=== PATIENT | male | born 1970 | race Caucasian/White ===

== ENCOUNTER → 2017-07-18 | Outpatient (CLI) | payer OTHER ==
[~2017-07-18] MED LIST: MELO7.5T31 PO; No Meds at this Time; ONDA4TAB7 PO; OXYC5CAP2 PO; TRAM50TA2 PO
[2017-07-18 09:46] LABS: BASOPHILS # (AUTO) 0.03 x10^3/uL (0-0.1); BASOPHILS % (AUTO) 0 % (0-1); EOSINOPHILS % (AUTO) 2 % (1-7); LYMPHOCYTES # (AUTO) 1.55 x10^3/uL (1-3.4); LYMPHOCYTES % (AUTO) 24 % (22-44); MD NO; MEAN CORPUSCULAR HEMOGLOBIN 33.5 pg (27.5-34.5); MEAN CORPUSCULAR HGB CONC 34.8 g/dL (33.2-36.2); MEAN CORPUSCULAR VOLUME 96.3 fL (81-97); MEAN PLATELET VOLUME 9.3 fL (7.4-10.4); MONOCYTES # (AUTO) 0.53 x10^3/uL (0.2-0.8); MONOCYTES % (AUTO) 8 % (2-9); NEUTROPHILS # (AUTO) 4.16 x10^3/uL (1.8-6.8); NEUTROPHILS % (AUTO) 65 % (42-75); PLATELET COUNT 194 x10^3/uL (130-400); RED BLOOD COUNT 4.79 x10^6/uL (4.38-5.82)
[2017-07-18 09:55] LABS: ALANINE AMINOTRANSFERASE 33 U/L (12-78); ALBUMIN 4.1 g/dL (3.4-5.0); ANION GAP 5 mmol/L (5-15); CALCIUM 8.7 mg/dL (8.5-10.1); CHLORIDE 107 mmol/L (98-107); CREATININE 1.17 mg/dL (0.7-1.3); INTERNATIONAL NORMALIZED RATIO 0.97 (0.93-1.1)
[2017-07-18 09:58] LABS: ALKALINE PHOSPHATASE 62 U/L (45-117); BILIRUBIN,TOTAL 0.7 mg/dL (0.2-1.0); TOTAL PROTEIN 7.4 g/dL (6.4-8.2)
[2017-07-18 10:17] LABS: HEMOGLOBIN A1C 4.9 % (4.2-6.3)
== END | disposition home or self-care (01) ==
LOC: STAR 08:15
PROVIDERS: ATTEND Orthopaedic Surgery
DX: M16.12 Unilateral primary osteoarthritis, left hip (principal); R79.1 Abnormal coagulation profile; R79.89 Other specified abnormal findings of blood chemistry
CPT/HCPCS: 36415; 80053; 83036; 85025; 85610; 85730; 87081; 93005

== ENCOUNTER 2017-07-22 06:00 | Inpatient (IN) | payer OTHER ==
[~2017-07-22] VITALS: Ht 182.9 cm; Wt 133.8 kg
[~2017-07-22 06:00] MED LIST changes: -MELO7.5T31 PO; -ONDA4TAB7 PO; -OXYC5CAP2 PO; -TRAM50TA2 PO
[2017-07-22] MEDS ORDERED: LACTATED RINGERS 1,000 ML IV SCH (06:53)
[2017-07-22] MEDS ORDERED: TRANEXAMIC ACID 100 MG/ML, 10ML ONE ×2 (06:53)
[2017-07-22] MEDS ORDERED: OxyconTIN ER 10 MG TAB.ER PO ONE (06:53)
[2017-07-22] MEDS ORDERED: KETOROLAC 60 MG/2 ML ONE (06:53)
[2017-07-22] MEDS ORDERED: ROPIvacaine/PF 0.2%, 20 ML ONE (06:54)
[2017-07-22] MEDS ORDERED: EPINEPHRINE 1 MG/ML, 1ML ONE (06:54)
[2017-07-22] MEDS ORDERED: VANCOMYCIN 1,000 MG ONE (06:54)
[2017-07-22] MEDS ORDERED: NS + 20MEQ KCL 1,000 ML IV SCH (06:59)
[2017-07-22] MEDS ORDERED: ONDANSETRON 2MG/ML, 2ML IV PRN (07:00)
[2017-07-22] MEDS ORDERED: OXYcodone IR 5MG TABLET PO PRN (07:00)
[2017-07-22] MEDS ORDERED: ZOLPIDEM 5MG TABLET PO PRN (07:00)
[2017-07-22] MEDS ORDERED: ACETAMINOPHEN 650 MG/20.3 ML UDC PO PRN (07:00)
[2017-07-22] MEDS ORDERED: ONDANSETRON 4 MG TABLET PO PRN (07:00)
[2017-07-22] MEDS ORDERED: DIPHENHYDRAMINE 50 MG CAPSULE PO PRN (07:00)
[2017-07-22] MEDS ORDERED: SENNA/DOCUSATE TABLET PO PRN (07:00)
[2017-07-22] MEDS ORDERED: HYDROcodone/APAP 5/325 TABLET PO PRN (07:00)
[2017-07-22] MEDS ORDERED: SCOPOLAMINE PATCH, 1.5MG PATCH.TD72 TD ONE (07:00)
[2017-07-22] MEDS ORDERED: MAGNESIUM HYDROXIDE 8%, 30ML UDC PO PRN (07:00)
[2017-07-22] MEDS ORDERED: BISACODYL 10 MG SUPP PR PRN (07:00)
[2017-07-22] MEDS ORDERED: ROPIvacaine/PF 0.5%, 30 ML ONE (07:04)
[2017-07-22] MEDS ORDERED: MIDAZOLAM 1 MG/ML, 2ML ONE (07:26)
[2017-07-22] MEDS ORDERED: FENTANYL PF 100 MCG/2ML ONE ×2 (07:26→09:26)
[2017-07-22] MEDS ORDERED: FENTANYL PF 250 MCG/5ML ONE (07:46)
[2017-07-22] MEDS ORDERED: LABETALOL 5MG/ML, 20ML ONE (07:47)
[2017-07-22] MEDS ORDERED: ROCURONIUM 10 MG/ML,10ML ONE (07:47)
[2017-07-22] MEDS ORDERED: CEFAZOLIN 1,000 MG ONE (07:47)
[2017-07-22] MEDS ORDERED: DEXAMETHASONE 4 MG/ML, 1ML ONE (07:47)
[2017-07-22] MEDS ORDERED: PROPOFOL 10 MG/ML, 20ML ONE (07:47)
[2017-07-22] MEDS ORDERED: SUCCINYLCHOLINE 20 MG/ML, 10ML ONE (07:47)
[2017-07-22] MEDS ORDERED: ONDANSETRON 2MG/ML, 2ML ONE (07:47)
[2017-07-22] MEDS ORDERED: ACETAMINOPHEN 325 MG TABLET PO PRN (08:30)
[2017-07-22] MEDS ORDERED: HYDROmorphone 1 MG/ML, 1ML IV PRN (08:30)
[2017-07-22] MEDS ORDERED: OXYcodone 5 MG/5 ML ORAL.SOL UDC PO PRN (08:30)
[2017-07-22] MEDS ORDERED: LORazepam 2 MG/ML, 1ML IVPush PRN (08:30)
[2017-07-22] MEDS ORDERED: PROMETHAZINE 12.5 MG SUPP PR PRN (08:30)
[2017-07-22] MEDS ORDERED: MEPERIDINE/PF 25MG/0.5ML IVPush PRN (08:30)
[2017-07-22] MEDS ORDERED: hydrALAzine 20 MG/ML, 1ML IV PRN (08:30)
[2017-07-22] MEDS ORDERED: METOPROLOL 1 MG/ML, 5ML IV PRN (08:30)
[2017-07-22] MEDS ORDERED: ALBUTEROL SULFATE 2.5 MG/3 ML NPPB PRN (08:30)
[2017-07-22] MEDS ORDERED: DOCUSATE 100 MG CAPSULE PO SCH (09:00)
[2017-07-22] MEDS ORDERED: ACETAMINOPHEN 650 MG/20.3 ML UDC ONE (09:25)
[2017-07-22] MEDS ORDERED: OXYcodone 5 MG/5 ML ORAL.SOL UDC ONE (09:26)
[2017-07-22] MEDS: FENTANYL PF 100 MCG/2ML IV PRN ×2 (09:33→10:03)
[2017-07-22] MEDS ORDERED: HYDROmorphone 2 MG/ML, 1ML ONE (10:39)
[2017-07-22 11:00] VITALS: BP 124/74
[2017-07-22] MEDS ORDERED: CEFAZOLIN PMX 2GM/50ML 50 ML IVPB SCH (12:00)
[2017-07-22 13:43] VITALS: BP 119/64
[2017-07-22] MEDS ORDERED: TRAM50TA2 PO (13:55)
[2017-07-22] MEDS ORDERED: OXYC5CAP2 PO (13:55)
[2017-07-22] MEDS ORDERED: MELO7.5T31 PO (13:56)
[2017-07-22] MEDS ORDERED: ONDA4TAB7 PO (13:56)
[2017-07-22] MEDS ORDERED: ASPIRIN 81 MG TABLET EC PO SCH (18:00)
[2017-07-23] MEDS ORDERED: DEXAMETHASONE 4 MG/ML, 1ML IVPush SCH (06:00)
== END 2017-07-22 14:16 | disposition home or self-care (01) | DRG 470 ==
LOC: ORIP 06:00 → 4NOR 10:59 → DCLOUNGE 13:53
PROVIDERS: ADMIT Orthopaedic Surgery; ATTEND Orthopaedic Surgery
PROC: 0SRB06A Replacement of Left Hip Joint with Oxidized Zirconium on Polyethylene Synthetic Substitute, Uncemented, Open Approach (ICD-10-PCS; principal; 2017-07-22 08:00)
DX: M16.12 Unilateral primary osteoarthritis, left hip (principal)
CPT/HCPCS: 36415; 72170; 76001; 86850; 86900; C1713; J0171; J0690; J1100; J1170; J1885; J2250; J2405; J2704; J2795; J3010; J3370; C1776; J0330; J7120